=== PATIENT | male | born 1965 | race Caucasian/White ===

== ENCOUNTER → 2021-02-27 | Outpatient (CLI) | payer OTHER ==
--- NOTE | 2021-02-27 09:38 | RAD ---
Chest PA and lateral 02/27/2021. Reason for exam: Low back pain and difficulty breathing. No infiltrate or effusion is seen. Heart size and pulmonary vascularity appear normal. There appear t o be mild wedge deformities in the mid T-spine. These are indeterminate in age. IMPRESSION: No acute cardiopulmonary disease. Mild mid thoracic compressions. Left shoulder 3 views: Reason for exam: Pain. No acute fracture or dislocation is seen. There is moderate narrowing of the glenohumeral joint with some associated osteophyte formation. A large calcific density projects in the axillary recess. This could be a loose body. No destructive process is seen. IMPRESSION: Moderate osteoarthritis. Possible loose body. Lumbar spine AP and lateral views: Reason for exam: Back pain. There is slight curvature convex to left. Alignment is otherwise normal. There is no loss of vertebra l body height or other evidence for fracture. There is prominent disc narrowing at L3-4, L4-5 and L5- S1. No destructive process is seen. IMPRESSION: Degenerative disc disease. Electronically signed by: Brendan Delong Jr., MD (02/27/2021 9:36 AM) [id number]
== END ==
LOC: PF 08:15
PROVIDERS: ATTEND Family Medicine
DX: Z02.71 Encounter for disability determination (principal); R06.00 Dyspnea, unspecified; M19.012 Primary osteoarthritis, left shoulder; M25.712 Osteophyte, left shoulder; M48.07 Spinal stenosis, lumbosacral region; M51.36 Other intervertebral disc degeneration, lumbar region; M25.812 Other specified joint disorders, left shoulder; G95.29 Other cord compression
CPT/HCPCS: 71046; 72100; 73030; 94060; 94640; 94664